=== PATIENT | male | born 1965 | race Caucasian/White ===

== ENCOUNTER → 2021-04-24 09:46 | Outpatient (BNVA) | payer MEDICAID, SELFPAY | PROVIDERS: PCP Nurse Practitioner Family; Visit Provider Nurse Practitioner Family | DX: B36.9 Superficial mycosis, unspecified (principal); Z13.6 Encounter for screening for cardiovascular disorders; R03.0 Elevated blood-pressure reading, without diagnosis of hypertension; Z12.5 Encounter for screening for malignant neoplasm of prostate; Z12.11 Encounter for screening for malignant neoplasm of colon; Z76.89 Persons encountering health services in other specified circumstances | CPT/HCPCS: 80053; 80061; 84443; 85025; G0103 ==

== ENCOUNTER → 2023-10-17 13:49 | Outpatient (BNVA) | payer MEDICAID, SELFPAY | PROVIDERS: PCP Nurse Practitioner Family; Visit Provider Nurse Practitioner Family | DX: B36.9 Superficial mycosis, unspecified (principal); Z13.6 Encounter for screening for cardiovascular disorders; Z12.11 Encounter for screening for malignant neoplasm of colon; M54.9 Dorsalgia, unspecified; G89.29 Other chronic pain; M25.551 Pain in right hip | CPT/HCPCS: 80053; 80061; 83036; 84443; 85025; G0103 ==

== ENCOUNTER 2023-10-28 09:52 | Outpatient (CLI) | payer MEDICAID, SELFPAY ==
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
== END 2023-10-28 09:53 | disposition home or self-care (01) ==
LOC: RAD 09:53
PROVIDERS: PCP Nurse Practitioner Family; Visit Provider Nurse Practitioner Family
DX: M16.11 Unilateral primary osteoarthritis, right hip (principal); M54.50 Low back pain, unspecified; G89.29 Other chronic pain; Z87.828 Personal history of other (healed) physical injury and trauma
CPT/HCPCS: 72100; 73502

== ENCOUNTER → 2023-10-31 09:08 | Outpatient (BNVA) | payer MEDICAID, SELFPAY | PROVIDERS: PCP Nurse Practitioner Family; Visit Provider Surgery | DX: R10.9 Unspecified abdominal pain (principal); Z12.11 Encounter for screening for malignant neoplasm of colon | CPT/HCPCS: 82274 ==

== ENCOUNTER 2024-01-23 08:27 | Day surgery (SDC) | payer MEDICAID, SELFPAY ==
[2024-01-23 08:38] VITALS: BP 137/87; PULSE 99; RESP 16; TEMP 36.7; O2SAT 98; BMI 45.3
[2024-01-23] MEDS: sodium chloride 0.9% 1,000 ML 30 ML IV (08:54)
--- NOTE | 2024-01-23 08:59 | ANES.PREANE2 ---
Pre-Anesthetic Assessment Height/Weight: Height 1.78 m Weight 143.335 kg Temp Pulse Resp BP Pulse Ox O2 Del Method 98.1 F 99 16 137/87 98 Room Air 01/23/24 08:38 01/23/24 08:38 01/23/24 08:38 01/23/24 08:38 01/23/24 08:38 01/23/24 08:38 Preop Diagnosis: Screening Operation Date: 01/23/24 09:40 Proposed Procedures p 01659 colon G0105 screen colon H risk Z12.11(Not Applicable) - Mizra Avitia MD Familial anesthetic complications: None Was Beta Noel taken within 24 hours: N/A Was Clonidine taken within 24 hours: N/A Last intake: Intake Last Liquid Date 01/22/24 Last Liquid Time 23:30 Last Solid Date 01/21/24 Last Solid Time 19:00 Social No alcohol and No tobacco Exam alert, oriented x 3 and regular rate & rhythm Airway Mallampati: Class III Dentition: chipped (multiple chipped and broken) and full History/ROS No significant history except as noted Pulmonary None reported CV/HEM None reported None reported Hepatic None reported GI Gastroesophageal Reflux Disease (occasional- related to diet) Metabolic Morbid Obesity Musc/skel None reported Neuropsych None reported Anesthetic Plan ASA status: 3 Anesthesia: Anesthesia Evaluation and MAC Risk of > 500 ml blood loss (7ml/kg in children): No Medications/Allergies Home Medications Medication Instructions Recorded Confirmed Last Taken Type ibuprofen 200 mg tablet 400 mg PO Q6H PRN Pain 01/21/24 01/23/24 01/07/24 History Allergies Allergy/AdvReac Type Severity Reaction Status Date / Time No Known Allergies Allergy Verified 12/18/23 09:16 Current Medications Generic Name Dose Route Start Last Admin Trade Name Freq PRN Reason Stop Dose Admin Sodium Chloride 1,000 mls @ 30 mls/hr 01/23/24 08:45 01/23/24 08:54 Sodium Chloride 0.9% IV 30 mls/hr .Q24H JONATHAN Administration PFSH Anesthesia Medical History No significant past medical history Surgical History Hx of hand surgery left Social History Smoking and tobacco/nicotine status: never used tobacco/nicotine Second hand smoke exposure: No Alcohol intake: never Substance/Drug Use: never Adopted: No Caregiver/support person: No Lives independently: Yes Household members: significant other Housing: House Marital status: Number of children: 3 Highest education level completed: GED or Equivalent service: No Current occupational status: unemployed Data Anesthesia Cardiac Studies: No Data to Display
--- NOTE | 2024-01-23 09:05 | W.PM.OPSFHP ---
Same Day Surgery H&P Indication for Procedure/HPI DATE OF PROCEDURE: January 23, 2024 CHIEF COMPLAINT/INDICATIONFOR SURGICAL PROCEDURE: need for screening colonoscopy PREOP DIAGNOSIS: Screening PLANNED PROCEDURE: Operation Date: 01/23/24 09:40 Proposed Procedures p 75961 colon G0105 screen colon H risk Z12.11(Not Applicable) - Mirza Avitia MD Medications/Allergies* Home Medications Medication Instructions Recorded Confirmed Type ibuprofen 200 mg tablet 400 mg PO Q6H PRN Pain 01/21/24 01/23/24 History Allergies/Adverse Reactions Allergy/AdvReac Type Severity Reaction Status Date / Time No Known Allergies Allergy Verified 12/18/23 09:16 Current Medications: Generic Name Dose Route Start Last Admin Trade Name Freq PRN Reason Stop Dose Admin Sodium Chloride 1,000 mls @ 30 mls/hr 01/23/24 08:45 01/23/24 08:54 Sodium Chloride 0.9% IV 30 mls/hr .Q24H JONATHAN Administration Pertinent History/Comorbid Conditions* Medical History (Updated 11/07/22 @ 12:28 by Remedios Cavazos DO) No significant past medical history Surgical History (Updated 11/07/22 @ 12:28 by Remedios Cavazos DO) Hx of hand surgery left Social History Smoking and tobacco/nicotine status: never used tobacco/nicotine Second hand smoke exposure: No Alcohol intake: never Substance/Drug Use: never Adopted: No Caregiver/support person: No Lives independently: Yes Household members: significant other Housing: House Marital status: Number of children: 3 Highest education level completed: GED or Equivalent service: No Current occupational status: unemployed Pertinent Exam Findings alert, oriented x 3 and clear to auscultation bilaterally Recommendations Surgery/Procedure today Coding Level of Care Code Acute Code for Chg Fwd
[2024-01-23 09:42] VITALS: BP 116/62; PULSE 90; RESP 16; TEMP 36.1; O2SAT 98
[2024-01-23 09:56] VITALS: BP 124/74; PULSE 100; RESP 16; O2SAT 98
--- NOTE | 2024-01-23 10:15 | ANE.PACU2 ---
Inpatient post-anesthesia follow up: Airway intact: Yes Vital signs: Temperature 97 F Pulse Rate 100 Respiratory Rate 16 Blood Pressure 124/74 Pulse Oximetry 98 Oxygen Delivery Me thod Room Air Oxygen Flow Rate Fraction of Inspir ed Oxygen Hydration adequate: Yes Nausea and vomiting: No Pain level: 1 Mental status: Baseline
== END 2024-01-23 10:15 | disposition home or self-care (01) ==
PROVIDERS: PCP Nurse Practitioner Family; Visit Provider Surgery
PROC: 0DJD8ZZ Inspection of Lower Intestinal Tract, Via Natural or Artificial Opening Endoscopic (ICD-10-PCS; CPT 45378; principal; 2024-01-23 09:40)
DX: Z12.11 Encounter for screening for malignant neoplasm of colon (principal); K57.30 Diverticulosis of large intestine without perforation or abscess without bleeding; D12.5 Benign neoplasm of sigmoid colon; D12.3 Benign neoplasm of transverse colon; K21.9 Gastro-esophageal reflux disease without esophagitis; E66.01 Morbid (severe) obesity due to excess calories; Z68.42 Body mass index [BMI] 45.0-49.9, adult
CPT/HCPCS: 45380; 45385; 88305; J2704; J7030

== ENCOUNTER → 2024-09-15 14:51 | Outpatient (BNVA) | payer MEDICAID, SELFPAY | PROVIDERS: PCP Nurse Practitioner Family; Visit Provider Nurse Practitioner Family | DX: M79.671 Pain in right foot | CPT/HCPCS: 73630 ==

== ENCOUNTER 2024-10-12 09:55 | Emergency (ER) | payer MEDICAID, SELFPAY ==
[2024-10-12 10:13] VITALS: BP 118/77; PULSE 121; RESP 22; TEMP 36.8; O2SAT 99; BMI 43.7
--- NOTE | 2024-10-12 10:17 | CT_ITS ---
WS: [id number] CT HEAD TECHNIQUE: Noncontrast CT of the head obtained from the skullbase to the vertex. CLINICAL INFORMATION: trauma COMPARISON: None. DLP: 2239.[address] scans at [facility] use at least one of these dose optimization techniques: automated e xposure control; mA and/or kV adjustment per patient size (includes targeted exams where dose is matc hed to clinical indication); or iterative reconstruction. FINDINGS: No evidence of intracranial hemorrhage or mass effect. Ventricular system and basal cisterns are lees nt. No extra-axial fluid collections. No evidence of mass or mass effect. Normal akbar-white different iation. Paranasal sinuses are well aerated. Opacification LEFT mastoid tip. RIGHT mastoid air cells are well aerated. CT/CT head wo con* [id number] IMPRESSION: 1. No evidence of intracranial hemorrhage or mass effect. 2. No acute intracranial findings.
--- NOTE | 2024-10-12 10:17 | ECG_ITS ---
[employer] Test Date: 2024-10-12 Pat Name: Blayne Paula Department: Room: Gender: Male Personal Care Aide: : 1965 Requested By: Jericho Seymour Order Number: [id number] Beny MD: Alessandro Weir M.D. Measurements Intervals Bradley Rate: 119 P: 37 UT: 176 QRS: -12 QRSD: 84 T: 42 QT: 321 QTc: 452 Interpretive Statements SINUS TACHYCARDIA LOW QRS VOLTAGE IN PRECORDIAL LEADS [QRS DEFLECTION < 1.0 mV IN CHEST LEADS] PATTERN CONSISTENT WITH PULMONARY DISEASE No previous ECG available for comparison Electronically Signed On 10-13-2024 23:59:31 VENDING ROUTE SERVICER by Alessandro Weir M.D. [email or web address]
--- NOTE | 2024-10-12 10:17 | CT_ITS ---
WS: [id number] CT CERVICAL TRAUMA TECHNIQUE: Noncontrast CT of the cervical spine with coronal and sagittal reformatted images. CLINICAL INFORMATION: trauma COMPARISON: None. DLP: 2239.[address] scans at [facility] use at least one of these dose optimization techniques: automated e xposure control; mA and/or kV adjustment per patient size (includes targeted exams where dose is matc hed to clinical indication); or iterative reconstruction. FINDINGS: Some images in the lower cervical spine degraded due to body habitus and beam hardening art ifact from shoulder overlap Mild compression of the superior plate C7, T1, and T2 nonspecific but may be chronic. No visualized p aravertebral or prevertebral edema. Images are degraded in this area due to shoulder overlap with ismael m-hardening artifact Straightening of the normal cervical lordosis. Normal craniocervical junction. Normal C1-C2 articulat ion. Dens is normal in appearance. Normal occipital condyles. No high-grade spinal canal narrowing. N ormal C1 ring. No definite evidence of acute fracture or dislocation. Normal prevertebral soft tissues. CT/CT cervical spin wo con* [id number] IMPRESSION: 1. No definite evidence of acute fracture or dislocation. 2. Mild compression of the superior endplates C7, T1, and T2 nonspecific but m ay be chronic. No visualized paravertebral edema. Recommend correlation with lo wer cervical and upper thoracic pain. No prior comparisons. Notified Jericho Rogers DO at 10/12/2024 11:47 AM.
[2024-10-12 10:36] VITALS: BP 132/82; PULSE 124; RESP 23; O2SAT 97
--- NOTE | 2024-10-12 10:39 | XR_ITS ---
WS: [id number] XR finger LT min 2V [id number] REASON FOR EXAM: fall, pain FINDINGS: No significant soft tissue swelling noted. No radiopaque foreign body. No acute fracture identified. Joint spaces are intact and well preserved. XR/XR finger LT min 2V [id number] IMPRESSION: No acute abnormality.
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
[2024-10-12 10:42] VITALS: BP 110/76; BP 131/74; BP 132/82; PULSE 112; PULSE 124; PULSE 130
[2024-10-12 10:43] LABS: Basophils # 0.1 10^3/uL (0.0-0.1); Basophils % 0.4 %; Eosinophils # 0.1 10^3/uL (0.0-0.8); Eosinophils % 0.7 %; Lymphocytes # 0.8 10^3/uL (0.8-4.8); Lymphocytes % 6.1 %; Mean Corpuscular HGB Conc 34.6 g/dL (30-55); Mean Corpuscular Hemoglobin 32.4 pg (27-33); Mean Corpuscular Volume 93.5 fl (82-101); Mean Platelet Volume 10.1 fL (7.4-10.4); Monocytes # 0.9 10^3/uL (0.2-0.9); Monocytes % 6.4 %; Neutrophils # 11.77 10^3/uL (1.8-7.7); Nucleated Red Blood Cells % 0 %; Platelet Count 241 10^3/cmm (157-399); Red Blood Count 5.56 10^6/uL (3.85-5.65); Red Cell Distribution Width 12.9 % (12.1-15.1); White Blood Count 13.68 10^3/uL (3.29-11.43)
[2024-10-12 10:57] LABS: Alanine Aminotransferase 16 U/L (0-41); Alkaline Phosphatase 149 U/L (40-130); Anion Gap 16.2 (5-19); Aspartate Amino Transferase 13 U/L (0-40); Blood Urea Nitrogen 13 mg/dL (6-20); Calcium 9.3 mg/dL (8.5-10.5); Carbon Dioxide 24 mmol/L (22-29); Chloride 99 mmol/L (98-107); Creatinine Clr Calc Pharmacy 95.2371; Globulin 3.5 g/dL (1.3-4.6); Glomerular Filtration Rate 62.4 mL/min (90-130); Glucose 105 mg/dL (65-115); Osmolality Calculated 280 mOsm/kg (285-295); Potassium 4.2 mmol/L (3.5-5.1); Sodium 135 mmol/L (136-145); Total Bilirubin 1.7 mg/dL (0.15-1.2); Total Protein 7.5 g/dL (6.6-8.7)
[2024-10-12] MEDS: sodium chloride 0.9% 1,000 ML 999 ML IV (11:07)
[2024-10-12 12:33] VITALS: BP 130/81; PULSE 101; RESP 23; O2SAT 97
[2024-10-12 13:09] VITALS: BP 126/89; PULSE 99; O2SAT 100
== END 2024-10-12 13:10 | disposition home or self-care (01) ==
PROVIDERS: Family Medicine; Emergency Provider Nurse Practitioner; PCP Nurse Practitioner Family
DX: R55 Syncope and collapse (principal); K52.9 Noninfective gastroenteritis and colitis, unspecified
CPT/HCPCS: 36415; 70450; 72125; 73140; 80053; 85025; 93005; 96360; 96361; 99285; J7030

== ENCOUNTER → 2025-01-13 09:03 | Outpatient (BNVA) | payer MEDICAID, SELFPAY | PROVIDERS: PCP Nurse Practitioner Family; Visit Provider Nurse Practitioner Family | DX: M79.642 Pain in left hand (principal); W19.XXXA Unspecified fall, initial encounter; Y92.009 Unspecified place in unspecified non-institutional (private) residence as the place of occurrence of the external cause; M25.512 Pain in left shoulder; R97.20 Elevated prostate specific antigen [PSA] | CPT/HCPCS: 73030; 73130; 80053; 84153; 85025 ==

== ENCOUNTER → 2025-08-10 14:57 | Outpatient (BNVA) | payer MEDICAID, SELFPAY | PROVIDERS: PCP Nurse Practitioner Family; Visit Provider Nurse Practitioner Family | DX: M25.512 Pain in left shoulder (principal); R97.20 Elevated prostate specific antigen [PSA] | CPT/HCPCS: 80053; 80061; 83036; 84153; 84443; 85025 ==

== ENCOUNTER 2025-08-24 09:35 | Outpatient (CLI) | payer MEDICAID, SELFPAY ==
--- NOTE | 2025-08-24 09:30 | MRR_ITS ---
PROCEDURE INFORMATION: Exam: MR Left Upper Extremity Joint Without Contrast; Shoulder Exam date and time: 08/24/2025 9:49 AM Age: 60 years old Clinical indication: Left; RT shoulder pain, injured in fall several months ago. Pain on top of shoulder; Additional info: M25.512 - pain in left shoulder TECHNIQUE: Imaging protocol: Magnetic resonance imaging of the left upper extremity without contrast. Exam focused on the shoulder. COMPARISON: CR XR shoulder LT min 2V* [id number] 01/13/2025 9:15 AM FINDINGS: Bones/joints: There is mild acromioclavicular joint degenerative osteoarthritis with mild marginal osteophytosis. There is mild degenerative subchondral marrow changes present. The acromiohumeral distance is 8 mm. The glenohumeral cartilage is intact. Glenoid labrum: There is mild internal myxoid degenerative T2 signal changes within the superior labrum. There is no threshold evidence for labral tear. Supraspinatus tendon: There is mild insertional tendinopathy of the posterior free edge of the supraspinatus tendon laterally at the insertion. Infraspinatus tendon: There is mild tendinopathy of the anterior free edge of the infraspinatus tendon laterally at the insertion. Subscapularis tendon: The subscapularis tendon is normal in appearance. Teres minor tendon: The teres minor tendon is normal in appearance. Tendon of biceps brachii: Unremarkable. No evidence of tear. Glenohumeral ligaments: Unremarkable. Soft tissues: Unremarkable. MR/MR shoulder LT wo con* [id number] IMPRESSION: 1. Mild insertional tendinopathy of the posterior free edge of the supraspinatus tendon and anterior free edge of the infraspinatus tendon laterally at the insertion. 2. Mild acromioclavicular joint degenerative osteoarthritis.
== END 2025-08-24 09:36 | disposition home or self-care (01) ==
LOC: RAD 09:36
PROVIDERS: PCP Nurse Practitioner Family; Visit Provider Nurse Practitioner Family
DX: M25.512 Pain in left shoulder (principal); M25.519 Pain in unspecified shoulder; G89.29 Other chronic pain; M25.612 Stiffness of left shoulder, not elsewhere classified; M75.82 Other shoulder lesions, left shoulder; M19.012 Primary osteoarthritis, left shoulder
CPT/HCPCS: 73221

== ENCOUNTER 2025-08-24 10:37 | Emergency (ER) | payer MEDICAID, SELFPAY ==
--- NOTE | 2025-08-24 10:40 | XRR_ITS ---
PROCEDURE INFORMATION: Exam: XR Right Foot Exam date and time: 08/24/2025 11:02 AM Age: 60 years old Clinical indication: Pain; Foot; Right; Additional info: Foot pain TECHNIQUE: Imaging protocol: Radiologic exam of the right foot. Views: 3 or more views. COMPARISON: CR XR foot RT min 3V* [id number] 09/15/2024 2:56 PM FINDINGS: Bones/joints: There is no fracture. There is minimal chronic enthesophyte formation present at the Achilles and plantar aponeurosis attachment to the calcaneus. Soft tissues: There is no foreign body. The soft tissues are unremarkable. XR/XR foot RT min 3V* [id number] IMPRESSION: No acute process
[2025-08-24 10:43] VITALS: BP 167/93; PULSE 97; RESP 17; TEMP 36.3; O2SAT 95; BMI 44.0
--- NOTE | 2025-08-24 11:02 | ED_ITS ---
HPI - Extremity Problem General: Chief complaint: Extremity Problem,Nontraumatic Stated complaint: R foot toe pain, discolored Time Seen by Provider: 08/24/25 11:02 History of Present Illness: 60-year-old man with history of obesity who presents to the emergency room with right second toe pain and swelling. Said he developed an area there that appears to be a very small abscess. He says recently has been being treated by dermatology for fungus. That has not been working he says. Pain and swelling has become worse. Related Data Previous Rx's ?Medication ?Instructions ?Recorded ondansetron 4 mg disintegrating 4 mg PO Q8H PRN nausea and 10/12/24 tablet vomiting #20 tabs clindamycin HCl 300 mg capsule 600 mg (2 x 300 mg) PO Q8H 10 days 08/24/25 #60 caps Allergies Allergy/AdvReac Type Severity Reaction Status Date / Time bee venom protein (honey bee) Allergy Unconscious Verified 08/24/25 10:47 scorpion venom Allergy Unconscious Verified 08/24/25 10:47 Review of Systems Narrative: Constitutional symptoms: Negative except as documented in HPI. Skin symptoms: Negative except as documented in HPI. Eye symptoms: Negative except as documented in HPI. ENMT symptoms: Negative except as documented in HPI. Respiratory symptoms: Negative except as documented in HPI. Cardiovascular symptoms: Negative except as documented in HPI. Gastrointestinal symptoms: Negative except as documented in HPI. Genitourinary symptoms: Negative except as documented in HPI. Musculoskeletal symptoms: Negative except as documented in HPI. Neurologic symptoms: Negative except as documented in HPI. Psychiatric symptoms: Negative except as documented in HPI. Endocrine symptoms: Negative except as documented in HPI. [facility] ED PFSH: Medical History (Updated 08/24/25 @ 11:58 by Autumn Mon MD) No significant past medical history Surgical History Hx of hand surgery left Social History Smoking and tobacco/nicotine status: never used tobacco/nicotine Second hand smoke exposure: No Alcohol intake: never Substance/Drug Use: never Adopted: No Caregiver/support person: No Lives independently: Yes Household members: significant other Housing: House Marital status: Number of children: 3 Highest education level completed: GED or Equivalent service: No Current occupational status: unemployed Physical Exam Narrative: EXAM NARRATIVE: General: Alert, no acute distress. Skin: warm and dry Head: Normocephalic Neck: Trachea midline Eye: Extraocular movements are intact. Ears, nose, mouth and throat: Oral mucosa moist Respiratory: Respirations are non-labored Musculoskeletal: Normal ROM. Distal second toe on the right foot has medial swelling and redness with some apparent pus. Gastrointestinal: Abdomen does not appear distended Neurological: Alert and oriented, No focal neurological deficit observed. Psychiatric: Cooperative, appropriate mood & affect. Course Vital Signs: Vital signs: Vital Signs Temperature 97.4 F L 08/24/25 10:43 Pulse Rate 97 08/24/25 10:43 Respiratory Rate 17 08/24/25 11:26 Blood Pressure 143/78 08/24/25 11:45 Pulse Oximetry 96 08/24/25 11:45 Oxygen Delivery Me thod Room Air 08/24/25 11:45 MDM - Extremity (Nontraumatic) Medical Decision Making Medical decision making Patient's reason for coming to the emergency room: Toe pain Social determinants: Patient is unemployed I reviewed the patient's medical record. Patient followed earlier this month for shoulder pain and family practice. I reviewed the patient's current home meds Patient currently not on any chronic home medications Alternate historians: None Differential diagnosis: including but not limited to and based on the above HPI, review of systems and physical exam: Patient has a fairly obvious paronychia. Draining and placing on antibiotics. Imaging to rule out any osteomyelitis X-ray of the right foot: No evidence of osteomyelitis. This was reviewed and interpreted by myself the emergency room physician. I also reviewed the radiology report. Incision and drainage. Time: 11:45 AM Confirmed patient, procedure, side, and site. Time out performed prior to procedure. Consent was obtained by patient and/or responsible alliance party. Indication: Abscess, paronychia Pre procedure: Circulation, motor, sensory intact Location: Right distal second toe on the medial side of the toenail Anesthesia: 1% lidocaine digital block Area prepared by sterile field with betadine, saline. Approximate 0.5 cm incision was made, with small amount of purulent drainage. Area was irrigated with copious amount of normal saline. Post procedure examination: Circulation, motor, sensory intact. Patient tolerated the procedure well. No complications. Total time min. Pt advised to keep the area clean and dry, wash twice per day with antibacterial soap and water. Take antibiotics as prescribed. Reexamination: Patient remained stable. No increased work of breathing. No altered mental status. No focal motor deficits. Assessment and plan: Paronychia of the right second toe ?IV clindamycin in the emergency room. Initially I was under the impression the patient was diabetic but he says he had an A1c recently that was normal - Discharged home - Discussed plan with patient. Answered any questions. - Evaluation and treatment of this problem were appropriate in the emergency setting. Lab Data Radiology Impressions Foot X-Ray 08/24/25 10:40 IMPRESSION: No acute process All radiology interpretation(s) finalized by discharge Discharge Plan Discharge Patient Disposition: Home Clinical Impression: Paronychia of second toe of right foot Condition: Stable Prescriptions: New clindamycin HCl 300 mg capsule 600 mg PO Q8H 10 Days Qty: 60 0RF No Action ondansetron 4 mg tablet,disintegrating 4 mg PO Q8H PRN (Reason: nausea and vomiting) Qty: 20 0RF Discharge Orders: Discharge ED (Routine); Ordered 08/24/25 Ordered By: Autumn Mon Referrals: Jessica Sánchez FNP-C [Primary Care Provider, Family Practice] Discharge Diet: Usual diet Discharge Activity: Increase activity as tolerated Patient Instructions: Paronychia (ED), Opioid Safety, Pain Management, Patient Portal & Charles Instructions Activity Restrictions/Additional Instructions: Thank you for choosing [facility] for your healthcare needs today. You have been screened and evaluated and felt safe for discharge. Health conditions do change or evolve sometimes and as such it is important that you follow up with your Primary Doctor to be re checked, 3-5 days is a general good time frame for follow up. You are always welcome to return to the ED for re assessment if your symptoms are worsening or you have new concerns Print Language: [place] Citizen Coding Level of Care Code ED Technical Delivery Manager for Leeanne Mauro
[2025-08-24 11:26] VITALS: RESP 17
[2025-08-24] MEDS: morphine 4 mg/mL SDV 1 mL IVP (11:26)
[2025-08-24] MEDS: ondansetron 2 mg/ML SDV 2 mL 4 MG IVP (11:26)
--- OUTSIDE RECORDS SUMMARY | 2025-08-24 11:29 | XMS_ITS | Clinical Summary ---
Author Organization [facility] Address [address] [facility] [address] [place] [address] Phone Care Team Providers Care Beta Tester Name Role Phone Unavailable Primary Care Provider Unavailabl e Allergies No known active allergies Medications No known medications Social History Tobacco Use Types Packs/Day Years Used Date Smoking Tobacco: Never Smokeless Tobacco: Current Chew Alcohol Use Standard Drinks/Week Comments No 0 (1 standard drink = 0.6 oz pur e alcohol) Sex and Gender Information Value Date Recorded Sex Assigned at Not on file Legal Sex Male 4:47 PM CDT Gender Identity Not on file Sexual Orientation Not on file Last Filed Vital Signs Vital Sign Reading Time Taken Comments Blood Pressure 156/91 08/14/2019 6:20 PM [employer] Pulse 88 08/14/2019 6:20 PM [employer] Temperature 36.7 C (98.1 F) 08/14/2019 6:20 PM [employer] Respiratory Rate 18 08/14/2019 6:20 PM [employer] Oxygen Saturation 97% 08/14/2019 6:20 PM [employer] Inhaled Oxygen Concentration - - Weight 137 kg (302 lb) 08/14/2019 5:20 PM [employer] Height 180.3 cm (5' 11 ) 08/14/2019 5:20 PM [employer] Body Mass Index 42.12 08/14/2019 5:20 PM [employer] Plan of Treatment Health Maintenance Due Date Last Done Comments DTAP/TDAP/TD VACCINES (1 - Tdap) 1986 HEPATITIS B VACCINES (1 of 3 - 19+ 3-dose series) 06/30 COLORECTAL SCREENING 2012 Colorectal Cancer Screening 2012 FIT-DNA Q 3 years 2012 FIT/FOBT Q 1 year 2012 Flex Sig/CT Colonography Q 5 years 2012 ZOSTER VACCINE (1 of 2) 2017 INFLUENZA VACCINE (#1) 2025
--- OUTSIDE RECORDS SUMMARY | 2025-08-24 11:29 | XMS_ITS | Clinical Summary ---
Author Organization [facility] Address [address] Attn: Epic Prelude ADT [place] [id number] Care Team Providers Care Immunology Specialist Name Role Phone Unavailable Primary Care Provider Unavailabl e Medications tamsulosin (Flomax) 0.4 mg capsule Take 1 Capsule (0.4 mg) by mouth daily. 30 Capsule 11 03/31/2024 Active Active Problems No known active problems Social History Tobacco Use Types Packs/Day Years Used Date Smoking Tobacco: Never Smokeless Tobacco: Current Tobacco Cessation:Ready to Q uit: Not Asked; Counseling Given: No Alcohol Use Standard Drinks/Week Comments No 0 (1 standard drink = 0.6 oz pur e alcohol) Sex and Gender Information Value Date Recorded Sex Assigned at Not on file Legal Sex Male 9:44 AM [employer] Gender Identity Not on file Sexual Orientation Not on file Last Filed Vital Signs Vital Sign Reading Time Taken Comments Blood Pressure 156/91 08/14/2019 6:20 PM [employer] Pulse 88 08/14/2019 6:20 PM [employer] Temperature 36.7 C (98.1 F) 08/14/2019 6:20 PM [employer] Respiratory Rate 18 08/14/2019 6:20 PM [employer] Oxygen Saturation - - Inhaled Oxygen Concentration - - Weight 137 kg (302 lb) 08/14/2019 5:20 PM [employer] Height 180.3 cm (5' 11 ) 08/14/2019 5:20 PM [employer] Body Mass Index 42.12 08/14/2019 5:20 PM [employer] Plan of Treatment Health Maintenance Due Date Last Done Comments DTAP/TDAP/TD VACCINES (1 - Tdap) 1986 HEPATITIS B VACCINES (1 of 3 - 19+ 3-dose series) 06/30 COLORECTAL SCREENING 2012 Colorectal Cancer Screening 2012 FIT-DNA Q 3 years 2012 FIT/FOBT Q 1 year 2012 Flex Sig/CT Colonography Q 5 years 2012 ZOSTER VACCINE (1 of 2) 2017 INFLUENZA VACCINE (#1) 2025 Insurance [facility] [employer] [facility] [id number]
[2025-08-24 11:45] VITALS: BP 143/78; O2SAT 96
[2025-08-24 12:14] VITALS: BP 145/98; PULSE 78; RESP 16; O2SAT 96
== END 2025-08-24 12:15 | disposition home or self-care (01) ==
PROVIDERS: Emergency Provider Emergency Medicine; PCP Nurse Practitioner Family
DX: L03.031 Cellulitis of right toe (principal)
CPT/HCPCS: 10060; 73630; 96374; 96375; 99284; J2270; J2405; J3490; J9999

== ENCOUNTER → 2025-09-28 15:28 | Outpatient (BNVA) | payer MEDICAID, SELFPAY | PROVIDERS: PCP Nurse Practitioner Family; Visit Provider Podiatrist Foot & Ankle Surgery | DX: B35.1 Tinea unguium (principal) | CPT/HCPCS: 80053 ==